=== PATIENT | female | born 1970 | race Caucasian/White ===

== ENCOUNTER → 2016-08-20 | Outpatient (CLI) | payer BC ==
--- NOTE | 2016-08-21 06:34 | XR ---
EXAMINATION TYPE: XR chest 2V DATE OF EXAM: 08/20/2016 3:21 PM HISTORY: Cough and shortness of breath. REFERENCE: NONE. FINDINGS: There is a nodular opacity overlying the right lower chest. The lungs are otherwise clear. Pleural spaces are clear. Heart size is normal. IMPRESSION: NODULAR OPACITY, RIGHT LOWER CHEST. A CT SCAN OF THE CHEST WOULD BE SUGGESTED.
== END | disposition home or self-care (01) ==
LOC: RADXRYALE 15:01
PROVIDERS: ATTEND Physician Assistant Medical
DX: R91.8 Other nonspecific abnormal finding of lung field (principal); R06.02 Shortness of breath; R05 Cough
CPT/HCPCS: 71020

== ENCOUNTER → 2016-09-01 | Outpatient (CLI) | payer BC ==
--- NOTE | 2016-09-01 15:59 | CT ---
EXAMINATION TYPE: CT chest wo con DATE OF EXAM: 09/01/2016 3:22 PM COMPARISON: NONE HISTORY: 46-year-old female STATES ABNORMAL FINDINGS ON CXR ON 08/20/16. TECHNIQUE: Contiguous axial scanning of the chest without IV contrast. Coronal and sagittal reconstru ctions performed. CT DLP: 531.0 mGycm Automated exposure control for dose reduction was used. FINDINGS: Heart is normal size without pericardial effusion. Ascending aorta is borderline ectatic at 3.5 cm. There is conventional arterial vessel branching mindy aileen. No thoracic lymphadenopathy. - 3 mm pulmonary nodule peripheral right upper lobe axial image 20. - 4 mm pulmonary nodule left upper lobe axial image 25. - 3 mm pulmonary nodule lingula axial image 30. - 3 mm pulmonary nodule and adjacent 2 mm pulmonary nodule inferior lingula axial image 32 and 33. - 4 mm pulmonary nodule peripheral left lower lobe axial image 36. No suspicious pulmonary nodule seen at the right base to correspond to the radiographic finding. No consolidation or pleural effusion. Visualized upper abdomen shows cholecystectomy clips and prominent ingested debris distending the sto mach. Bones: Mild endplate spondylosis midthoracic spine. No osseous destructive process. IMPRESSION: 1. NO ACUTE PULMONARY PROCESS. 2. SCATTERED PULMONARY NODULES MEASURING UP TO 4 MM. A ONE YEAR YEAR FOLLOW-UP EXAM IS RECOMMENDED PE R FLEISCHNER GUIDELINES. 3. NO NODULE AT THE RIGHT BASE TO CORRESPOND TO THE X-RAY FINDING. THE RADIOGRAPHIC PROBABLY REPRESEN TS SUMMATION ARTIFACT.
== END | disposition home or self-care (01) ==
LOC: RADCTMAIN 15:07
PROVIDERS: ATTEND Family Medicine
DX: R91.8 Other nonspecific abnormal finding of lung field (principal)
CPT/HCPCS: 71250

== ENCOUNTER → 2016-09-17 | Outpatient (CLI) | payer BC ==
--- NOTE | 2016-09-17 11:49 | EST ---
DATE OF SERVICE: 09/17/2016 AGE: 46Y SEX: F HT: 62 WT: 145 lbs. Protocol Larry: X Other: Stage: III Dur. of Exercise: 9 minutes *Heart Rate Blood Pressure *Rest: 113 Rest: 113/84 * *Max. Achieved: 151 Maximum BP: 167/84 85% PMHR: 146 100% PMHR: 172 *METS: 10.5 INDICATIONS: Chest pain. MEDICATIONS: Baseline EKG shows sinus rhythm, normal axis, normal intervals. Patient exercised on Larry protocol for a total of 9 minutes, achieving 10 METs, 87% of predicted maximal heart rate without chest pain or diagnostic ST segment depression. CONCLUSION: 1. Good exercise tolerance. 2. Negative stress test by EKG criteria.
== END | disposition home or self-care (01) ==
LOC: RADNMMAIN 10:43
PROVIDERS: ATTEND Family Medicine
DX: R07.9 Chest pain, unspecified (principal); R06.02 Shortness of breath
CPT/HCPCS: 93017

== ENCOUNTER 2017-03-31 08:35 | Day surgery (SDC) | payer BC ==
[2017-03-29 09:17] VITALS: BMI 25.6
[~2017-03-31 08:35] MED LIST: LACTATED RINGERS 1,000 ML IV SCH
[2017-03-31 09:15] VITALS: RESP 16; TEMP 98.4
[2017-03-31] MEDS ORDERED: LIDOCAINE 1% 20 ML VIAL (10MG/ML) FOR IV START INTRADERMA ONE (09:15)
[2017-03-31 09:18] LABS: Glucose,Whole Blood 91 mg/dL (75-99)
[2017-03-31] MEDS ORDERED: PROPOFOL 10 MG/ML 20 ML VIAL IV ONE (09:39)
--- NOTE | 2017-03-31 09:46 | P.PCN ---
Date of Procedure: 03/31/17 Procedure(s) Performed: BRIEF HISTORY: Patient is a 46-year-old, pleasant, white female, scheduled for an upper endoscopy as a part of evaluation of epigastric pain for the last 3 months duration. She was recently started on Prilosec 20 mg daily and symptoms have significantly improved.. PROCEDURE PERFORMED: Esophagogastroduodenoscopy with biopsy. PREOPERATIVE DIAGNOSIS: Chronic epigastric pain. IV sedation per anesthesia. PROCEDURE: After informed consent was obtained, the patient was brought into the endoscopy unit. IV sedation was administered by Anesthesia under continuous monitoring. Initially the Olympus GIF-140 video endoscope was inserted into the mouth. Esophagus intubated without any difficulty. It was gradually advanced into the stomach and duodenum and carefully examined. The bulb and the second part of the duodenum appeared normal. The scope at this time was withdrawn to the stomach, adequately insufflated with air, and upon careful examination, mucosa of the antrum, had mild gastritis and biopsies were done in this area to evaluate for H. pylori infection. The body, cardia and the fundus appeared normal. The scope was then withdrawn into the esophagus. The GE junction was located at 39 cm from the incisors. The esophagus appeared normal. There were no erosions or ulcerations seen and the patient tolerated the procedure well. IMPRESSION: 1. Mild antral gastritis. 2. No evidence of esophagitis or peptic ulcer disease. RECOMMENDATIONS: The findings of this examination were discussed with the patient as well as her family. She was advised to follow with the biopsy results. She can continue with Prilosec as needed and follow antireflux measures.
[2017-03-31 10:04] VITALS: BP 112/67; PULSE 74
== END 2017-03-31 10:22 | disposition home or self-care (01) ==
LOC: ORWHC2ENDO 08:35
PROVIDERS: ATTEND Internal Medicine Gastroenterology
DX: K29.50 Unspecified chronic gastritis without bleeding (principal); K20.9 Esophagitis, unspecified; E16.2 Hypoglycemia, unspecified; F39 Unspecified mood [affective] disorder; Z79.899 Other long term (current) drug therapy
CPT/HCPCS: 88305; 88342; 43239; J2704

== ENCOUNTER → 2018-12-13 | Outpatient (CLI) | payer BC ==
--- NOTE | 2018-12-13 22:14 | CT ---
EXAMINATION TYPE: CT chest wo con DATE OF EXAM: 12/13/2018 COMPARISON: Chest CT September 01, 2016. HISTORY: Pulmonary nodule. CT DLP: 174.1 mGycm. Automated Exposure Control for Dose Reduction was Utilized. TECHNIQUE: CT scan of the thorax is performed without IV contrast. FINDINGS: LUNGS: There is stable 4 mm right upper lobe nodule in retrospect axial image 11. There is stable an terolateral 3 mm right upper lobe nodule axial image 21. There are some additional scattered micronod ules measuring under 4 mm scattered throughout the right lung felt stable. There is stable 4 mm left upper lobe nodule axial image 29. There is a stable 2 to 3 mm nodule in the lingula axial image 33. Some small adjacent nodules in the lingula axial image 36 are stable measuri ng up to 5 mm in size. Some mild linear scarring in the left lung base. Some additional scattered jerod ronodules. No new greater than 4 mm nodules. MEDIASTINUM: Lack of IV contrast is noted to limit evaluation for mediastinal and especially hilar ad enopathy. There are no definitive greater than 1 cm hilar or mediastinal lymph nodes. No cardiomega ly or pericardial effusion is seen. Ascending aorta measures up to 3.6 cm in diameter axial image 26 fairly stable from prior. OTHER: Cholecystectomy clips are redemonstrated. [id number] multilevel spurring in the thoracic spine is redemonstrated. IMPRESSION: Stable scattered small bilateral nodules. No new or enlarging nodules are evident. Findin gs are presumed postinflammatory or benign given documentation of over 2 year stability.
== END | disposition home or self-care (01) ==
LOC: RADCTMAIN 16:20
PROVIDERS: ATTEND Family Medicine
DX: R91.8 Other nonspecific abnormal finding of lung field (principal)
CPT/HCPCS: 71250

== ENCOUNTER 2019-01-06 08:47 | Day surgery (SDC) | payer BC ==
[2019-01-04 10:38] VITALS: BMI 25.6
[2019-01-06 09:02] VITALS: TEMP 97.5
[2019-01-06] MEDS ORDERED: LIDOCAINE 1% 20 ML VIAL (10MG/ML) FOR IV START INTRADERMA ONE (09:02)
[2019-01-06] MEDS ORDERED: LACTATED RINGERS 1,000 ML IV ONE (09:02)
[2019-01-06 09:12] LABS: Glucose,Whole Blood 95 mg/dL (75-99)
[2019-01-06] MEDS ORDERED: LIDOCAINE 1% INJ 10MG/ML (20 ML MDV) ONE (09:55)
[2019-01-06] MEDS ORDERED: PROPOFOL 10 MG/ML 20 ML VIAL IV ONE (09:55)
--- NOTE | 2019-01-06 10:18 | P.PCN ---
Date of Procedure: 01/06/19 Procedure(s) Performed: BRIEF HISTORY: Patient is a 48-year-old pleasant female scheduled for an elective colonoscopy as a part of screening for colorectal neoplasia. PROCEDURE PERFORMED: Colonoscopy with snare polypectomy. PREOPERATIVE DIAGNOSIS: Screening for colon cancer. IV sedation per Anesthesia. PROCEDURE: After informed consent was obtained, the patient, was brought into the endoscopy unit. IV sedation was administered by Anesthesia under continuous monitoring. Digital rectal examination was normal. Initially the Olympus CF-160 flexible video colonoscope was then inserted in the rectum, gradually advanced into the cecum without any difficulty. Careful examination was performed as the scope was gradually being withdrawn. Ileocecal valve and the appendiceal orifice were visualized and appeared normal. Prep was excellent. Mucosa of the cecum, ascending colon, transverse colon, descending colon, sigmoid colon, and rectum appeared normal. As a 5 mm polyp in the distal rectum that was removed by snare polypectomy. Retroflexion was performed in the rectum and no lesions were seen. The patient tolerated the procedure well. IMPRESSION: 5 mm distal rectal polyp status post polypectomy Rest of the colon appeared normal RECOMMENDATIONS: Findings of this examination were discussed with the patient as his family. She was advised to follow with the biopsy results. If the biopsy shows an adenoma she can have a repeat colonoscopy in 5 years.
[2019-01-06 10:24] VITALS: RESP 17
[2019-01-06 10:53] VITALS: BP 119/79; PULSE 63
== END 2019-01-06 10:57 | disposition home or self-care (01) ==
LOC: ORWHC2ENDO 08:47
PROVIDERS: ATTEND Internal Medicine Gastroenterology
DX: Z12.11 Encounter for screening for malignant neoplasm of colon (principal); D12.8 Benign neoplasm of rectum; K21.9 Gastro-esophageal reflux disease without esophagitis; Z79.899 Other long term (current) drug therapy
CPT/HCPCS: 88305; 45385; J2001; J2704